=== PATIENT | male | born 1960 | race Caucasian/White ===

== ENCOUNTER 2019-04-04 09:36 | Emergency (ER) | payer MEDICAID ==
[~2019-04-04] VITALS: Ht 193 cm; Wt 100.0 kg
[~2019-04-04 09:36] MED LIST: BUPR1TAB; ESCI10TA45 PO; PANT40TA39 PO; PRED20TA PO; QUET-1 PO; WEL100T PO
[2019-04-04 10:43] LABS: BASOPHILS % (AUTO) 0.7 % (0-1); EOSINOPHILS # (AUTO) 0.1 X10'3 (0-0.9); EOSINOPHILS % (AUTO) 2.9 % (0-6); HEMATOCRIT 44.3 % (42.0-52.0); LYMPHOCYTES % (AUTO) 19.5 % (21-51); MEAN CORPUSCULAR HEMOGLOBIN 33.3 PG (27.0-31.0); MEAN CORPUSCULAR HGB CONC 33.9 g/dL (33.0-36.5); MEAN CORPUSCULAR VOLUME 98.2 FL (78-98); MEAN PLATELET VOLUME 8.1 FL (7.4-10.4); MONOCYTES # (AUTO) 0.5 X10'3 (0-0.9); MONOCYTES % (AUTO) 9.1 % (2-12); NEUTROPHILS # (AUTO) 3.4 X10'3 (1.8-7.7); NEUTROPHILS % (AUTO) 67.8 % (42-75); PLATELET COUNT 184 X10'3 (140-440); RED BLOOD COUNT 4.51 X10'6 (4.70-6.10); RED CELL DISTRIBUTION WIDTH 13.6 % (11.5-14.5); WHITE BLOOD COUNT 4.9 X10'3 (4.5-11.0)
[2019-04-04 10:59] LABS: PARTIAL THROMBOPLASTIN TIME 29 SECONDS (22-32)
[2019-04-04 11:02] LABS: ALANINE AMINOTRANSFERASE 47 U/L (12-78); ALBUMIN 3.6 G/DL (3.4-5.0); ALBUMIN/GLOBULIN RATIO 1.1 (1.1-1.5); ALKALINE PHOSPHATASE 44 IU/L (46-116); ANION GAP 6 (8-16); ASPARTATE AMINO TRANSFERASE 33 U/L (10-37); BILIRUBIN,TOTAL 0.4 MG/DL (0.1-1.0); BLOOD UREA NITROGEN 20 MG/DL (7-18); BUN/CREATININE RATIO 19.2 (5.4-32.0); CALCIUM 8.4 MG/DL (8.5-10.1); CHLORIDE 106 MMOL/L (99-107); CREATININE 1.04 MG/DL (0.60-1.10); GLUCOSE 102 MG/DL (70-104); POTASSIUM 4.6 MMOL/L (3.5-5.1); SODIUM 138 MMOL/L (135-145); TOTAL CARBON DIOXIDE 26.3 MMOL/L (24-32); eGFR 73 ML/MIN
[2019-04-04 11:56] VITALS: BP 121/80
== END 2019-04-04 12:02 | disposition home or self-care (01) ==
LOC: ER 09:37
DX: R07.89 Other chest pain (principal); I10 Essential (primary) hypertension; E11.9 Type 2 diabetes mellitus without complications; F41.0 Panic disorder [episodic paroxysmal anxiety]; F20.9 Schizophrenia, unspecified; Z56.0 Unemployment, unspecified; Z79.899 Other long term (current) drug therapy; Z86.73 Personal history of transient ischemic attack (TIA), and cerebral infarction without residual deficits
CPT/HCPCS: 36415; 70450; 71045; 80053; 84484; 85025; 85610; 85730; 93005; 99284

== ENCOUNTER 2021-12-27 13:58 | Emergency (ER) | payer SELFPAY ==
[~2021-12-27] VITALS: Ht 193 cm; Wt 81.8 kg
[2021-12-27 14:03] VITALS: BP 136/96
[2021-12-27] MEDS ORDERED: CEPH500C2 PO (14:32)
[2021-12-27] MEDS ORDERED: MINE105O TOP (14:33)
== END 2021-12-27 14:45 | disposition home or self-care (01) ==
LOC: ER 13:59
DX: M79.671 Pain in right foot (principal); B35.1 Tinea unguium; M20.42 Other hammer toe(s) (acquired), left foot; M20.41 Other hammer toe(s) (acquired), right foot; L03.115 Cellulitis of right lower limb; I10 Essential (primary) hypertension; E11.9 Type 2 diabetes mellitus without complications; F17.200 Nicotine dependence, unspecified, uncomplicated; F15.90 Other stimulant use, unspecified, uncomplicated; F11.90 Opioid use, unspecified, uncomplicated; Z86.73 Personal history of transient ischemic attack (TIA), and cerebral infarction without residual deficits; Z87.01 Personal history of pneumonia (recurrent); Z56.0 Unemployment, unspecified; Z79.2 Long term (current) use of antibiotics; Z79.899 Other long term (current) drug therapy
CPT/HCPCS: 99283

== ENCOUNTER 2022-04-05 12:27 | Emergency (ER) | payer MEDICAID ==
[~2022-04-05] VITALS: Ht 193 cm; Wt 86.4 kg
[~2022-04-05 12:27] MED LIST changes: +MINE105O TOP
[2022-04-05 12:28] VITALS: BP 167/101
[2022-04-05] MEDS ORDERED: CIPR10DR LEFT EAR (13:43)
[2022-04-05] MEDS ORDERED: ibuprofen tablet 400 MG TABLET PO ONE (13:45)
[2022-04-05] MEDS ORDERED: ciprofloxacin 0.3% 2.5ml ophthalmic solution LEFT EAR SCH (20:00)
[2022-04-05] MEDS ORDERED: Cipro HC otic suspension 10ML bottle LEFT EAR SCH (20:00)
== END 2022-04-05 14:36 | disposition home or self-care (01) ==
LOC: ER 12:27
DX: H60.502 Unspecified acute noninfective otitis externa, left ear (principal); I10 Essential (primary) hypertension; E11.9 Type 2 diabetes mellitus without complications; F20.9 Schizophrenia, unspecified; F15.10 Other stimulant abuse, uncomplicated; Z56.0 Unemployment, unspecified; Z79.899 Other long term (current) drug therapy; Z79.2 Long term (current) use of antibiotics
CPT/HCPCS: 99283

== ENCOUNTER 2022-04-17 13:12 | Emergency (ER) | payer SELFPAY ==
[~2022-04-17] VITALS: Ht 193 cm; Wt 100.0 kg
[2022-04-17 13:49] VITALS: BP 162/94
[2022-04-17] MEDS ORDERED: OFLO5DRO5 LEFT EAR (14:39)
== END 2022-04-17 15:07 | disposition home or self-care (01) ==
LOC: ER 13:12
DX: H65.92 Unspecified nonsuppurative otitis media, left ear (principal); I10 Essential (primary) hypertension; E11.9 Type 2 diabetes mellitus without complications; F15.20 Other stimulant dependence, uncomplicated; F11.90 Opioid use, unspecified, uncomplicated; Z56.0 Unemployment, unspecified
CPT/HCPCS: 99283

== ENCOUNTER 2023-04-02 07:42 | Emergency (ER) | payer MEDICAID ==
[~2023-04-02 07:42] MED LIST changes: +OFLO5DRO5 LEFT EAR
== END 2023-04-02 07:52 | disposition left against medical advice (07) ==
LOC: ER 07:42
DX: L98.9 Disorder of the skin and subcutaneous tissue, unspecified (principal); Z53.21 Procedure and treatment not carried out due to patient leaving prior to being seen by health care provider

== ENCOUNTER 2024-02-03 13:52 | Emergency (ER) | payer MEDICAID ==
[~2024-02-03] VITALS: Ht 185.4 cm; Wt 68.0 kg
[2024-02-03 14:01] VITALS: BP 148/82; PULSE 106; RESP 18; TEMP 98.8; O2SAT 98
== END 2024-02-03 16:45 | disposition left against medical advice (07) ==
LOC: ER 13:53
DX: Z04.6 Encounter for general psychiatric examination, requested by authority (principal); Z53.21 Procedure and treatment not carried out due to patient leaving prior to being seen by health care provider

== ENCOUNTER 2025-01-04 08:06 | Emergency (ER) | payer MEDICAID ==
[~2025-01-04] VITALS: Ht 193 cm; Wt 56.9 kg
[2025-01-04 08:08] VITALS: BP 132/79; PULSE 57; RESP 15; TEMP 98.4; O2SAT 97
[2025-01-04] MEDS ORDERED: piperacillin/tazo 3.375gm/50ml 50 ML IV ONE (09:15)
== END 2025-01-04 09:44 | disposition left against medical advice (07) ==
LOC: ER 08:07
DX: E11.621 Type 2 diabetes mellitus with foot ulcer (principal); L97.522 Non-pressure chronic ulcer of other part of left foot with fat layer exposed; I10 Essential (primary) hypertension; I48.91 Unspecified atrial fibrillation; F20.9 Schizophrenia, unspecified; Z86.73 Personal history of transient ischemic attack (TIA), and cerebral infarction without residual deficits; Z79.899 Other long term (current) drug therapy; F15.90 Other stimulant use, unspecified, uncomplicated; F11.90 Opioid use, unspecified, uncomplicated; Z56.0 Unemployment, unspecified
CPT/HCPCS: 73660; 87070; 87077; 87186; 93005; 99284; 99285